=== PATIENT | male | born 1945 | race Caucasian/White ===

== ENCOUNTER 2020-08-01 00:41 | Emergency (ER) | payer MEDICARE, OTHER, SELFPAY ==
[2020-08-01 00:47] VITALS: BP 142/88; PULSE 92; RESP 17; TEMP 36.6; O2SAT 95; BMI 35.2
[2020-08-01 00:57] VITALS: BP 146/89; PULSE 83; RESP 16; O2SAT 94
--- NOTE | 2020-08-01 00:59 | XR_ITS ---
WS: [id number] EXAM: ABDOMINAL KUB DATE OF EXAMINATION: 08/01/2020, 0107 hours COMPARISON: None. HISTORY: Patient is 75 years old with abdominal pain. Constipation for the last day. FINDINGS: The bowel gas pattern is normal. Slight increased stool in the rectal vault otherwise no increased st ool in the colon is demonstrated. No calcifications are seen to suggest renal or ureteral calculi. Ca lcification in the right deep pelvis felt to represent a phlebolith. Solid organ silhouettes do not a ppear enlarged. 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 XR/XR KUB portable [id number] IMPRESSION: Normal bowel gas pattern. Small stool ball in the rectal vault otherwise no inc reased stool in the colon demonstrated.
--- NOTE | 2020-08-01 01:00 | ED_ITS ---
HPI - General Adult General: Chief complaint: General Medical Stated complaint: problem urinating Time Seen by Provider: 08/01/20 00:54 History of Present Illness: HPI narrative: Patient is a 75-year-old male who comes to the ED with constipation. Patient said that he had a bowel movement approximately 2 days ago when he said it was initially hard stool and he had to strain to get out and then once the hard stool came out he had diarrhea afterwards. Denies any blood in the stool. He says he does have some abdominal cramping discomfort that comes and goes. Patient said he tried to sit down on the toilet today and have a bowel movement and it was unsuccessful. Endorses having the urge and feeling that he needs to have a bowel movement but when he sits down he is unable to get any stool out. Patient has a history of urinary retention and does occasionally have to self cath to relieve urinary retention. He says he does not have any urinary problems at this time. Patient does not use any laxatives or stool softeners. Denies any nausea/vomiting, fevers, chills, dysuria or hematuria. Associated symptoms: Deny chest pain, dyspnea, headache(s), nausea, rash, palpitations or vomiting Review of Systems Const: Denies: fever(s), chills or fatigue Eyes: Denies: change in vision or eye discomfort ENMT: Denies: throat pain, odynophagia, nasal discharge or nasal congestion Card: Denies: chest pain, palpitations, edema, swelling of feet/ankles, dyspnea on exertion or orthopnea Resp: Denies: dyspnea, productive cough or non-productive cough GI: Reports: abdominal pain (intermittent cramping pain) and constipation; Denies: nausea, vomiting, diarrhea or hematochezia : Denies: flank pain, difficulty urinating, dysuria or hematuria Musc: Denies: neck pain, back pain or extremity swelling Skin/Breast: Denies: rash or new lesions Neuro: Denies: headache(s), numbness in extremities or weakness in extremities Physical Exam Const: COMMON NORMALS: no acute distress, patient oriented x3 and alert GENERAL APPEARANCE: cooperative; not comfortable (pt has episodes of discomfort.) HENMT: COMMON NORMALS: normocephalic HEAD & SCALP: normocephalic MOUTH: Normal oral and palatal mucosa present THROAT: posterior oropharynx normal and uvula midline Eye: COMMON NORMALS: Equal, round and reactive pupils present PUPIL: Yes Equal, round and reactive pupils present Neck/C-Spine: COMMON NORMALS: supple GENERAL: Yes normal visual inspection Resp: COMMON NORMALS: normal respiratory effort, No retractions, No use of accessory muscles and clear to auscultation bilaterally AUSCULTATION: clear to auscultation bilaterally Cardio: COMMON NORMALS: regular rate, regular rhythm, S1 normal heart sound present, S2 normal heart sound present, No gallops present (Cardio), No clicks present (Cardio), No murmurs present (Cardio) and Peripheral pulses 2+ throughout RATE: regular rate RHYTHM: regular rhythm HEART SOUNDS: S1 normal heart sound present and S2 normal heart sound present PERIPHERAL PULSES: Peripheral pulses 2+ throughout GI: COMMON NORMALS: Normal to inspection, nondistended, normoactive bowel sounds present, Soft to palpation, non-tender and no masses PALPATION: Yes Soft to palpation OTHER: Patient had no abdominal tenderness to palpation. : COMMON NORMALS: Yes no CVA tenderness BLADDER/KIDNEY EXAM: Yes no CVA tenderness Back/Pelvis: COMMON NORMALS: no CVA tenderness Extremity: COMMON NORMALS: normal to inspection and no pedal edema Neuro: COMMON NORMALS: patient oriented x3 and moves all extremities SENSORIUM/ORIENTATION: Yes alert Skin: COMMON NORMALS: no rashes or lesions noted GENERAL SKIN EXAM: no rashes or lesions noted and dry skin Course Reevaluation(s): Reevaluation #1: Patient was not complaining of any urinary retention upon arrival here in the ED. While in the ED, patient tried to have a bowel movement and urinate and he was unable to do both. Patient has a history of urinary retention and does perform self caths at home as needed. Here in the ED patient performed a self cath and UA was sent to lab. Time: 01:35 Reevaluation #2: I went in and checked on patient after he was given the milk of molasses enema. Patient says he was able to pass large stool and feels a lot better. Patient is ready for discharge. Time: 02:35 Vital Signs: Vital signs: Vital Signs Temperature 97.9 F 08/01/20 00:47 Pulse Rate 83 08/01/20 00:57 Respiratory Rate 16 08/01/20 00:57 Blood Pressure 146/89 08/01/20 00:57 Pulse Oximetry 94 08/01/20 00:57 MDM - General Adult MDM Narrative: Medical decision making narrative: Patient is a 75-year-old male who comes to the ED with constipation. Last BM was approximately 2 days ago and was hard and required straining to get out. Today he has felt like he has to have a bowel movement and when he sits down he is unable to he get anything out. Patient does have to chronically self cath but upon arrival in the ED he had no urine retention complaints. Patient tried to urinate and have a bowel movement while here in the ED and was unsuccessful. Patient then performed self cath and UA was obtained. UA had positive nitrates, many RBCs, white blood cells and bacteria. KUB of the abdomen showed mass of stool in the rectum. Patient was given a Fleet enema which was unsuccessful. Patient was then given a milk of molasses enema and he was able to pass fecal mass in his symptoms greatly improved. Patient was diagnosed with constipation, fecal impaction and UTI. He was given a dose of cefdinir while here in the ED and sent home with a prescription for cefdinir. He was also sent with a prescription for MiraLAX and told to eat high-fiber food and drink plenty of fluids. Return to ED precautions given. Patient understood and agreed with plan. Lab Data: Attestation: I reviewed the patient's lab results. Labs: Lab Results 08/01/20 Range/Units 01:48 Urine Color Yellow (Yellow) Urine Appearance Cloudy (CLEAR) Urine pH 5 (5-7) Ur Specific Gravit y 1.025 (1.005-1.030) Urine Protein Neg (Negative) Urine Glucose (UA) Norm (Normal) Urine Ketones Negative (Negative) Urine Blood Neg (Negative) Urine Nitrate Positive H (Negative) Urine Bilirubin Neg (Negative) Urine Urobilinogen Norm (Negative) mg/dL Ur Leukocyte Faith ase 2+ H (Negative) Urine RBC 5-10 H (0-2) /hpf Urine WBC >100 H (0-5) /hpf Ur Squamous Epith Cells 0-4 H (0-5) /hpf Amorphous Sediment Not Reportable Urine Bacteria 2+ H (NONE) /hpf Imaging Data^: KUB: Attestation: I personally reviewed and interpreted this imaging study as follows: My impression: KUB-Patient appears to have ball of stool in the rectum. Discharge Plan Discharge Patient Disposition: Home Clinical Impression: Fecal impaction in rectum Constipation Qualifiers: Constipation type: slow transit constipation Qualified Code(s): K59.01 - Slow transit constipation UTI (urinary tract infection) Qualifiers: Urinary tract infection type: acute cystitis Hematuria presence: with hematuria Qualified Code(s): N30.01 - Acute cystitis with hematuria Condition: Stable Prescriptions: New Miralax 17 gram/dose powder 17 gm PO DAILY PRN (Reason: constipation) Qty: 119 RF: 0 cefdinir 300 mg capsule 300 mg PO BID 10 Days Qty: 20 RF: 0 Discharge Orders: Discharge Order (Routine); Ordered 08/01/20 Ordered By: Joni Stratton Referrals: Dayana Hallman DO [Primary Care Provider] - Discharge Diet: Regular Discharge Activity: Resume usual activity Patient Instructions: Constipation (ED), Urinary Tract Infection in Men (ED) Activity Restrictions/Additional Instructions: Follow-up with medical provider as directed. Drink plenty of fluids and take MiraLAX as prescribed. increase fiber intake in your diet including eating fruits and vegetables daily. Take antibiotic as prescribed for UTI. Continue taking home medications as prescribed. Return to the ER or your medical provider if condition worsens. Please read and understand discharge instructions. If any questions, please ask. Coding Level of Care Code ED Water Vessel Captain for Jose A Fwd Exam Comprehensive
[2020-08-01] MEDS: Fleet Enema 133 mL Enema PR (01:57)
[2020-08-01 02:26] LABS: Urine Color Yellow (Yellow)
[2020-08-01 02:27] LABS: Add Urine Culture? Yes; Add Urine Microscopic? YES; Bacteria Urine 2+ /hpf; Bilirubin Urine Neg (Negative); Blood Urine Neg (Negative); Glucose Urine UA Norm (Normal); Ketones Urine Negative (Negative); Leukocyte Esterase Urine 2+ (Negative); Nitrate Urine Positive (Negative); Protein Urine Neg (Negative); Specific Gravity, Urine 1.025 (1.005-1.030); Squamous Epithelial Cell Urine 0-4 /hpf (0-5); Urine Appearance Cloudy (CLEAR); Urobilinogen Urine Norm (Negative); WBC Urine >100 /hpf (0-5); pH Urine 5 (5-7)
[2020-08-01] MEDS: cefdinir 300 MG CAPSULE PO (02:42)
[2020-08-01 02:46] VITALS: BP 104/83; PULSE 100; RESP 16; O2SAT 94
== END 2020-08-01 02:53 | disposition home or self-care (01) ==
PROVIDERS: Emergency Provider Physician Assistant; PCP Family Medicine
DX: K59.01 Slow transit constipation (principal); N30.01 Acute cystitis with hematuria
CPT/HCPCS: 12345; 45915; 74018; 81001; 87077; 87086; 87186; 99282; 99283